=== PATIENT | male | born 1995 | race Caucasian/White ===

== ENCOUNTER 2018-10-14 08:33 | Emergency (ER) | payer BC, OTHER ==
[~2018-10-14] VITALS: Ht 162.6 cm; Wt 49.6 kg
[2018-10-14] MEDS ORDERED: IBUP-1114 PO (08:40)
[2018-10-14] MEDS ORDERED: NS 1,000 ML IV ONE (09:45)
[2018-10-14] MEDS ORDERED: ACETAMINOPHEN 325 MG TAB PO ONE (09:45)
[2018-10-14 10:17] LABS: BASO % 0.2 % (0.0-1.0); HEMATOCRIT 45.1 % (42.0-52.0); LYMPH # 0.5 10^3/uL (1.5-6.5); LYMPH % 4.6 % (24.0-44.0); MEAN CORPUSCULAR HEMOGLOBIN 31.7 pg (27.0-33.0); MEAN CORPUSCULAR HGB CONC 35.5 g/dl (32.0-36.5); MEAN CORPUSCULAR VOLUME 89.5 fl (80.0-96.0); MONO # 1.2 10^3/uL (0.0-0.8); MONO % 10.7 % (0.0-5.0); NEUTROPHILS # 9.5 10^3/uL (1.8-7.7); NEUTROPHILS % 84.1 % (36.0-66.0); PLATELET COUNT, AUTOMATED 193 10^3/uL (150-450); RED BLOOD COUNT 5.04 10^6/uL (4.30-6.10); WHITE BLOOD COUNT 11.3 10^3/uL (4.0-10.0)
[2018-10-14 10:44] LABS: ALBUMIN 4.2 GM/DL (3.2-5.2); ALT/SGPT 16 U/L (12-78); BILIRUBIN,DIRECT 0.2 MG/DL (0.0-0.2); BILIRUBIN,TOTAL 0.6 MG/DL (0.2-1.0); BLOOD UREA NITROGEN 9 MG/DL (7-18); C REACTIVE PROTEIN QUANTITATIV 5.53 MG/DL (0.00-0.30); CARBON DIOXIDE LEVEL 26 MEQ/L (21-32); CHLORIDE LEVEL 103 MEQ/L (98-107); CREATININE FOR GFR 0.98 MG/DL (0.70-1.30); GLOMERULAR FILTRATION RATE > 60.0 (>60); GLUCOSE, FASTING 101 MG/DL (70-100); POTASSIUM SERUM 3.5 MEQ/L (3.5-5.1); SODIUM LEVEL 136 MEQ/L (136-145); TOTAL PROTEIN 7.7 GM/DL (6.4-8.2)
--- NOTE | 2018-10-14 11:22 | REP ---
PA and lateral chest: There are no comparisons. The lung delatorre appear hyperinflated but otherwise clear. The cardiac size is normal. The tammie, mediastinum, and skeletal structures are unremarkable. Impression: Hyperinflation, otherwise, negative PA and lateral chest. Electronically Signed by Sal Lozano MD 10/14/2018 11:14 A
[2018-10-14 13:25] VITALS: BP 110/57
--- NOTE | 2018-10-14 13:33 | REP ---
REASON: Headache and pyrexia. COMPARISON: 02/17/2007. TECHNIQUE: 4.5 mm contiguous transaxial sections were obtained from the skull base to the cerebral convexities with thin cuts through the posterior fossa without the administration of intravenous contrast. FINDINGS: The ventricles and sulci are consistent with the patient's age. There are no extra-axial fluid collections. There is no mass effect. The deep cerebral white matter is consistent with the patient's age. The orbital and petrous structures , cerebellopontine angles, and posterior fossa are unremarkable. The sella turcica, cavernous, and paracavernous structures are essentially unremarkable. The visualized portions of the paranasal sinuses and mastoid air cells are clear. Images of the skull base show no gross abnormality. IMPRESSION: Essentially unremarkable CT examination of the brain. Electronically Signed by Parveen Gonzalez DO 10/14/2018 03:32 P
--- NOTE | 2018-10-14 13:34 | REP ---
REASON: Headache and fever. PRIORS: None. I have been given no history of trauma. Vertebral body height and alignment is within normal limits. The disc spaces are symmetric and well maintained throughout. The facet joints are well aligned bilaterally. There is no cervical spine fracture. There is no evidence of abnormal paraspinal soft tissue swelling. IMPRESSION: CT findings are within normal limits. Electronically Signed by Parveen Gonzalez DO 10/14/2018 03:32 P
== END 2018-10-14 13:27 | disposition home or self-care (01) ==
LOC: M ED 08:33
DX: B34.9 Viral infection, unspecified (principal); R51 Headache; Z20.89 Contact with and (suspected) exposure to other communicable diseases